=== PATIENT | female | born 1985 | race Caucasian/White ===

== ENCOUNTER 2016-06-27 22:20 | Inpatient (IN) | payer OTHER ==
--- NOTE | 2016-06-28 00:15 | OBHP ---
Datetime: 06/28/2016 00:14 Admit Comment, IP Provider: 30 yo edc 07/11 by lmp _ 14wk us at 38wks with c/o suprapubic pre ssure and decreased fm. She denies srom, vaginal bleeding. She states she does not know if she is in labor. 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 Pt for admission. Datetime: 06/28/2016 00:02 IP Adm Impression: Term, intrauterine IP Admit Plan: Admit to unit; Observation/Evaluation Pelvic Type - PN: Adequate Extremities - PN: Normal Abdomen - PN: Normal Back - PN: Normal Lungs - PN: Normal Heart - PN: Normal Neurologic - PN: Normal HEENT - PN: Normal General - PN: Normal FHR - Baseline A Provider: 120 Membranes, Provider: Intact EGA AdmitDate IP: 38.0 IP Chief Complaint: Other NICHD Variability Prov Fetus A: Minimal - Undetectable to <5bpm NICHD Accel Fetus A IP Provider: [id number] FHR Category Provider Fetus A: Category I NICHD Decel Fetus A IP Provider: None Dilatation, Provider: 1 Effacement, Provider: 0 Station, Provider: -4 Genitourinary Exam: Normal
[2016-06-28 00:19] VITALS: BMI 29.6
[2016-06-28] MEDS ORDERED: Oxytocin 30 units/LR 500ML 30 U/500 ML BAG IV SCH ×2 (00:30→23:23)
[2016-06-28 00:43] LABS: BASO % 0.2 % (0.0-2.0); EOS # 0.1 K/uL (0.0-0.7); EOS % 0.9 % (0.0-4.0); HEMATOCRIT 33.6 % (34.0-47.0); LYMPH # 1.6 K/uL (1.0-4.3); LYMPH % 19.3 % (20.0-40.0); MEAN CELL VOLUME 90.9 fl (81.0-99.0); MEAN CORPUSCULAR HEMOGLOBIN 31.7 pg (27.0-31.0); MEAN CORPUSCULAR HGB CONC 34.8 g/dL (33.0-37.0); MEAN PLATELET VOLUME 10.3 fl (7.2-11.7); MONO # 0.9 K/uL (0.0-0.8); MONO % 10.1 % (0.0-10.0); NEUT # 5.9 K/uL (1.8-7.0); NEUT % 69.5 % (50.0-75.0); RED CELL DISTRIBUTION WIDTH 13.2 % (11.5-14.5); WHITE BLOOD COUNT 8.5 K/uL (4.8-10.8)
[2016-06-28 00:51] VITALS: BP 114/75; PULSE 90; RESP 19; TEMP 98.8; O2SAT 99
[2016-06-28] MEDS ORDERED: Lactated Ringer's 1,000 ML IV SCH ×3 (06:10→20:00)
[2016-06-28] MEDS: Lactated Ringer's 1,000 ML IV SCH ×2 (08:00)
[2016-06-28] MEDS ORDERED: Lidocaine 1% Inj (20ml) ONE (09:26)
--- NOTE | 2016-06-28 17:46 | OBADHP ---
Datetime: 06/28/2016 00:14 IP Adm Impression Other: early labor with c/o dec fm Admit Comment, IP Provider: 30 yo edc 07/11 by lmp _ 14wk us at 38wks with c/o suprapubic pre ssure and decreased fm. She denies srom, vaginal bleeding.. obhx: x2; sab x1 manager printing connie: cryo 2015 pshx: breast implant; abdominoplasty pmhx: denies nkda medic: pnv shx: denies etoh, tobacco or illicit drug us i: 38.1wk Reassuring status p: pt d/w dr brody. Pt for admission. Extremities - PN: Normal Abdomen - PN: Abnormal Back - PN: Normal Breast - PN: Abnormal Lungs - PN: Normal Heart - PN: Normal Neurologic - PN: Normal HEENT - PN: Normal General - PN: Normal Presentation-Admit: cephalic FHR - Baseline A Provider: 140's Membranes, Provider: Intact Contraction Comments Provider: irreg Comments, ACOG Physical Exam: breast augumentation scars, abd gravid with fundus at term and old sc ars from abdominoplasty, Ext no calf tenderness Gestation - Est Wks by US: 38 wks 1 d IP Chief Complaint: Uterine contractions; Decreased movement NICHD Variability Prov Fetus A: Moderate 6-25bpm NICHD Accel Fetus A IP Provider: [id number] NICHD Decel Fetus A IP Provider: None Dilatation, Provider: 2cm Effacement, Provider: 60% Station, Provider: -2 Genitourinary Exam: Normal DTRs - PN: Normal EGA AdmitDate IP: 38.0 IP Adm Impression: Term, intrauterine IP Admit Plan: Admit to unit; Initiate labor augmentation protocol
--- NOTE | 2016-06-28 17:51 | OBPN ---
Datetime: 06/28/2016 17:45 IP Progress Impression Other: labor with dec fm IP Procedures: Artificial ROM IP Progress Plan: Continue present management Membranes, Provider: Ruptured Amniotic Fluid Color, Provider: Clear Contraction Comments Provider: 2-3 min FHR - Baseline A Provider: 140's Gestation - Est Wks by US: 38.0 Presentation-Admit: cephalic IP Progress Note Comment: AROM done clear fluid, good tracing and continue Pitocin augumentation NICHD Variability Prov Fetus A: Moderate 6-25bpm Dilatation, Provider: ext 4cm/int 3cm Effacement, Provider: 70-80% Station, Provider: -2 NICHD Decel Fetus A IP Provider: None Datetime: 06/28/2016 00:14 NICHD Accel Fetus A IP Provider: [id number] Datetime: 06/28/2016 00:02 FHR Category Provider Fetus A: Category I
[2016-06-28] MEDS ORDERED: Fentanyl/Bupivacaine HCl 250 ML EPI ONE (19:33)
[2016-06-28] MEDS ORDERED: Bupivacaine HCl 0.25% PF (10 ml) Inj ONE (19:33)
--- NOTE | 2016-06-28 23:17 | OBDS ---
MATERNAL INFORMATION Estimated Blood Loss (ml): 250cc Maternal Complications: None Provider Comments: Delivered a living baby boy appears term cried spontaneously two loose nuchal cor ds 9/9, AF clear Placenta delivered complete and intact Uterus contracted well no perineal vagi nal or cervical tears noted Tolerated procedure well no complications Rectal no defects LABOR SUMMARY EDC: 07/11/2016 00:00 No. Babies in Womb: 1 Attempted: No LABOR INFORMATION Reason for Induction: Not Applicable; Other Reason for Induction Other: decrease movement and pain Oxytocin: Augmentation Group B Beta Strep: Negative Antibiotics # of Doses: n/a Antibiotics Time of Last Dose: n/a Steroids Given: None Reason Steroids Not Administered: Not Applicable Other Reason Not Administered: n/a MEMBRANES Membranes Rupture Method: Artificial Rupture of Membranes: 06/28/2016 17:30 Amniotic Fluid Color: Clear Amniotic Fluid Amount: Large Amniotic Fluid Odor: Normal VAGINAL DELIVERY Episiotomy: None Laceration Extension: N/A Laceration Type: None Laceration Repair: Not Applicable Laceration Repair Note: n/a Sponge Count Correct: Yes Sharps Count Correct: N/A Count Comment: yes CSECTION DELIVERY Primary Indication: N/A Secondary Indication: N/A CSection Urgency: N/A CSection Incidence: N/A Labor: N/A Elective: N/A CSection Incision: N/A Uterine Closure: N/A PRESENTATION/POSITION BABY A Presentation: cephalic Cephalic Presentation: Vertex
[2016-06-28] MEDS ORDERED: Oxycodone/Acetaminophen 5/325 mg Tab PO PRN (23:23)
[2016-06-29 06:35] LABS: HEMATOCRIT 32.3 % (34.0-47.0); MEAN CELL VOLUME 90.6 fl (81.0-99.0); MEAN CORPUSCULAR HEMOGLOBIN 31.7 pg (27.0-31.0); RED CELL DISTRIBUTION WIDTH 12.9 % (11.5-14.5); WHITE BLOOD COUNT 11.1 K/uL (4.8-10.8)
--- NOTE | 2016-06-29 16:14 | OBPPN ---
Datetime: 06/29/2016 16:06 PP Pain Prov: Within normal limits PP Pain Prov comment: no SOB, chest pains or leg pains PP Nausea Prov: Denies PP Flatus Prov: Yes PP Nausea Prov comment: voiding well PP Breasts Prov: Normal PP Heart Prov: Normal PP Lungs Prov: Normal PP Abdomen/Uterus Prov: Abnormal PP Lochia Prov: Normal PP Vulva/Perineum Prov: Normal PP CVA Tenderness Prov: Normal PP Extremities Prov: Normal PP C/S Incision Prov: Not Applicable PP Progress Prov: Normal PP Comments Phys Exam Prov: Abd soft ND fundus firm below the umb. NT Perineum intact, ext no calf tenderness PP Impression Prov: Normal progression PP Plan Prov: Continue present management PP Progress Note Prov: CBC stable, continue PP care and OOB Increase po fluids IP PP Procedures: None Vital Signs Provider PP: Reviewed
--- NOTE | 2016-06-30 09:04 | OBPPN ---
Datetime: 06/30/2016 09:00 PP Pain Prov: Within normal limits PP Nausea Prov: Denies PP Flatus Prov: Yes PP Breasts Prov: Normal PP Heart Prov: Normal PP Lungs Prov: Normal PP Abdomen/Uterus Prov: Normal PP Lochia Prov: Normal PP Vulva/Perineum Prov: Normal PP CVA Tenderness Prov: Normal PP Extremities Prov: Normal PP Progress Prov: Normal PP Impression Prov: Normal progression PP Plan Prov: Continue present management PP Progress Note Prov: stable ppd2 continue present care IP PP Procedures: None Vital Signs Provider PP: Reviewed; Within Normal Limits
--- NOTE | 2016-06-30 09:05 | OBDCSUM ---
Datetime: 06/30/2016 09:02 Discharged to, Provider: Home Follow up at, Provider: Disch Instr Diet: Regular Discharge Instructions, Provider: Routine instructions given Discharge Diagnosis, Provider: Term Delivered Discharge Time: 06/30/2016 09:03 Follow up in weeks, Provider: 5-6weeks Disch Referrals: None Disch Activity Restrictions: No exercising; No lifting; No driving; Minimize walking; Minimize stair -climbing; No sexual activity; Nothing in vagina - [place], tampons, douche Contraception after Delivery: IUD
== END 2016-06-30 14:05 | disposition home or self-care (01) | DRG 373 ==
LOC: H.EROB2 22:20 → H.L&D 23:56 → H.OB/GYN 06-29 04:28
PROVIDERS: ADMIT Specialist; ATTEND Specialist
PROC: 10E0XZZ Delivery of Products of Conception, External Approach (ICD-10-PCS; principal; 2016-06-28)
PROC: 4A1HXCZ Monitoring of Products of Conception, Cardiac Rate, External Approach (ICD-10-PCS; 2016-06-28)
DX: O36.8130 Decreased fetal movements, third trimester, not applicable or unspecified (principal); O69.81X0 Labor and delivery complicated by cord around neck, without compression, not applicable or unspecified; Z37.0 Single live birth; Z3A.38 38 weeks gestation of pregnancy; Z98.82 Breast implant status